=== PATIENT | male | born 1980 | race American Indian/Alaskan Native ===

== ENCOUNTER 2016-12-06 18:21 | Emergency (ER) | payer OTHER ==
[2016-12-06 18:30] VITALS: BP 154/82; PULSE 75; RESP 16; TEMP 98.8; O2SAT 100
--- NOTE | 2016-12-06 18:41 | ED PDOC ---
Lower Extremity Pain/Injury Time Seen by Provider: 12/06/16 18:31 Chief Complaint (Nursing): Lower Extremity Problem/Injury Chief Complaint (Provider): Lower Extremity Problem/Injury History Per: Patient History/Exam Limitations: no limitations Onset/Duration Of Symptoms: Days (x1 day) Current Symptoms Are (Timing): Still Present Additional Complaint(s): 36 y/o male presents to the emergency department with a complaint of pain and swelling to the left ankle and left pretibial status post open reduction internal fixation (ORIF) surgery of the left tib/fib area x1 day. Denies trauma , fever, chest pain, or shortness of breath. PMD: Dr. Nghia Bardales MD Past Medical History Reviewed: Historical Data, Nursing Documentation, Vital Signs Vital Signs: Last Vital Signs Temp 98.8 F 12/06/16 18:28 Pulse 75 12/06/16 18:28 Resp 16 12/06/16 18:28 BP 154/82 H 12/06/16 18:28 Pulse Ox 100 12/06/16 18:28 - Medical History PMH: No Chronic Diseases - Surgical History Other surgeries: ORIF left tib fib - Family History Family History: States: Unknown Family Hx - Immunization History Hx Tetanus Toxoid Vaccination: No Hx Influenza Vaccination: No Hx Pneumococcal Vaccination: No - Home Medications Home Medications: Ambulatory Orders Medication Instructions Recorded No Known Home Med 11/12/16 - Allergies Allergies/Adverse Reactions: Allergies Allergy/AdvReac Type Severity Reaction Status Date / Time No Known Allergies Allergy Verified 12/06/16 18:28 Review of Systems ROS Statement: Except As Marked, All Systems Reviewed And Found Negative Constitutional: Negative for: Fever Cardiovascular: Negative for: Chest Pain Respiratory: Negative for: Shortness of Breath Musculoskeletal: Positive for: Foot Pain (Pain and swelling of the left ankle and left pretibial area). Negative for: Other (No trauma) Physical Exam - Reviewed Nursing Documentation Reviewed: Yes Vital Signs Reviewed: Yes - Physical Exam Appears: Positive for: Non-toxic, No Acute Distress Head Exam: Positive for: ATRAUMATIC, NORMAL INSPECTION, NORMOCEPHALIC Skin: Positive for: Normal Color, Warm, Dry Cardiovascular/Chest: Positive for: Regular Rate, Rhythm. Negative for: Murmur Respiratory: Positive for: Normal Breath Sounds. Negative for: Accessory Muscle Use, Respiratory Distress Extremity: Positive for: Swelling (Left lower swelling and warmth noted to the left pretibial and calf region. Surgical scar noted. ). Negative for: Other ( Drainage. ) Neurologic/Psych: Positive for: Alert, Oriented - ECG O2 Sat by Pulse Oximetry: 100 (RA) Pulse Ox Interpretation: Normal Medical Decision Making Medical Decision Making: Time: 18:34 Initial plan: --VBG --CMP --CBC w/ diff --Blood Culture --Tibia Fibula Left x-ray --Duplex Lower Extrm US --Reevaluation Scribe Attestation: Documented by Tori Delgado, acting as a scribe for Renato Echavarria MD. Provider Scribe Attestation: All medical record entries made by the Scribe were at my direction and personally dictated by me. I have reviewed the chart and agree that the record accurately reflects my personal performance of the history, physical exam, medical decision making, and the department course for this patient. I have also personally directed, reviewed, and agree with the discharge instructions and disposition. Disposition - Clinical Impression Clinical Impression: Leg pain - Patient ED Disposition Is Patient to be Admitted: Transfer of Care - Disposition Disposition: Transfer of Care Disposition Time: 18:57 Condition: FAIR Forms: [employer] (Romanian) Patient Signed Over To: Gianni Gray
[2016-12-06 19:00] LABS: BASO % 0.5 % (0.0-2.0); EOS # 0.1 K/uL (0.0-0.7); EOS % 2.1 % (0.0-4.0); LYMPH # 2.7 K/uL (1.0-4.3); LYMPH % 39.2 % (20.0-40.0); MEAN CELL VOLUME 82.3 fl (80.0-94.0); MEAN CORPUSCULAR HEMOGLOBIN 26.2 pg (27.0-31.0); MEAN CORPUSCULAR HGB CONC 31.9 g/dL (33.0-37.0); MEAN PLATELET VOLUME 8.5 fl (7.2-11.7); MONO # 0.7 K/uL (0.0-0.8); MONO % 10.4 % (0.0-10.0); NEUT # 3.3 K/uL (1.8-7.0); NEUT % 47.8 % (50.0-75.0); RBC 4.19 Mil/uL (4.40-5.90); RED CELL DISTRIBUTION WIDTH 18.3 % (11.5-14.5); WHITE BLOOD COUNT 6.9 K/uL (4.8-10.8)
[2016-12-06 19:02] LABS: VENOUS BLOOD GAS BASE EXCESS 6.1 mmol/L (0.0-2.0); VENOUS BLOOD GAS PCO2 46 mmHg (40-60); VENOUS BLOOD GAS PO2 95 mm/Hg (30-55); VENOUS BLOOD PH 7.44 (7.32-7.43)
--- NOTE | 2016-12-06 19:28 | ED PDOC ---
- Laboratory Results Result Diagrams: 12/06/16 18:45 12/06/16 20:01 - ECG O2 Sat by Pulse Oximetry: 100 (RA) Pulse Ox Interpretation: Normal Medical Decision Making Medical Decision Making: Time: 19:00 --Patient transferred from Dr. Gross to mn. --Pending x-ray and ultrasound. Time: 19:55 --Duplex ultrasound FINDINGS: Normal-appearing compressibility, flow and augmentation response are seen in the left common femoral, femoral and popliteal veins. Flow is seen in the posterior tibial vein , in the left calf. IMPRESSION: No evidence of deep venous thrombosis in the left leg. Patient reassessed at bedside, sleeping but arousable. Patient requesting percocets. [place] Rx shows multiple prescriptions for narcotic, informed patient that he must see pain management for chronic pain issues. Xray neg for acute pathology (made patient aware that some screws were broken but likely chronic), recommended f/u w/ orthopedist. Return precautions given. Scribe Attestation: Documented by Tori Delgado, acting as a scribe for Gianni Gray MD. Provider Scribe Attestation: All medical record entries made by the Scribe were at my direction and personally dictated by me. I have reviewed the chart and agree that the record accurately reflects my personal performance of the history, physical exam, medical decision making, and the department course for this patient. I have also personally directed, reviewed, and agree with the discharge instructions and disposition. Disposition - Clinical Impression Clinical Impression: Leg pain, Chronic pain - POA Present On Arrival: None - Disposition Referrals: Pranav Hernandez III, MD [Staff Provider] - Disposition: Routine/Home Disposition Time: 19:55 Condition: FAIR Prescriptions: Ibuprofen [Motrin Tab] 600 mg PO Q6 #30 tab Instructions: Leg Pain (ED) Forms: [employer] (Guyanese)
--- NOTE | 2016-12-06 19:55 | US ---
EXAM: US Duplex Left Lower Extremity Veins CLINICAL HISTORY: 36 years old, male; Pain; Leg, lower; Left; Additional info: Swelling R/O dvt TECHNIQUE: Real-time ultrasound scan of the veins of the left lower extremity with color Doppler flow, spectral waveform analysis and compression. EXAM DATE/TIME: 12/06/2016 6:35 PM COMPARISON: No relevant prior studies available. FINDINGS: Normal-appearing compressibility, flow and augmentation response are seen in the left common femoral, femoral and popliteal veins. Flow is seen in the posterior tibial vein, in the left calf. IMPRESSION: No evidence of deep venous thrombosis in the left leg.
[2016-12-06 20:30] LABS: ALB/GLOB RATIO 1.2 (1.0-2.1); ALBUMIN 3.8 g/dL (3.5-5.0); ALT/SGPT 28 U/L (21-72); AST/SGOT 22 U/L (17-59); BLOOD UREA NITROGEN 17 mg/dl (9-20); CALCIUM 8.9 mg/dL (8.4-10.2); GFR AFRICAN-AMERICAN > 60; GFR NON-AFRICAN AMERICAN > 60
--- NOTE | 2016-12-07 11:42 | RAD ---
PROCEDURE: Radiographs of the left tibia and fibula. HISTORY: Swelling, Pain. No history of recent/ related trauma provided COMPARISON: None available. TECHNIQUE: Frontal and lateral views obtained. FINDINGS: BONES: Orthopedic hardware identified distal tibia and fibula traversing major fracture fragments which appear to be anatomically aligned. Evidence of callus formation/healing identified. Postoperative changes from prior orthopedic hardware proximal tibia and calcaneus. JOINT SPACES: Unremarkable. OTHER FINDINGS: None. IMPRESSION: No acute osseous findings. No evidence of hardware failure. No preliminary report provided by emergency department personnel.
== END 2016-12-06 21:43 | disposition home or self-care (01) ==
LOC: H.ER 18:21
DX: G89.29 Other chronic pain (principal); M79.605 Pain in left leg

== ENCOUNTER 2018-02-22 03:23 | Emergency (ER) | payer MEDICAID, OTHER ==
[2018-02-22 03:32] VITALS: BP 123/88; PULSE 94; RESP 16; TEMP 98.4; O2SAT 100
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
== END 2018-02-22 07:15 | disposition home or self-care (01) ==
LOC: H.ER 03:23
DX: F43.20 Adjustment disorder, unspecified (principal); I10 Essential (primary) hypertension

== ENCOUNTER 2018-02-24 17:32 | Emergency (ER) | payer MEDICAID ==
[2018-02-24 17:43] VITALS: RESP 16; TEMP 98
[2018-02-24] MEDS ORDERED: Oxycodone/Acetaminophen 5/325 mg Tab PO STA (18:51)
[2018-02-24] MEDS ORDERED: Oxycodone/Acetaminophen 5/325 mg Tab ONE (19:02)
[2018-02-24 19:28] VITALS: BP 151/79; PULSE 81; O2SAT 99
--- NOTE | 2018-02-24 20:01 | ED PDOC ---
HPI: General Adult Time Seen by Provider: 02/24/18 17:55 Chief Complaint (Nursing): Rib Injury Chief Complaint (Provider): Right rib pain, 3 weeks History Per: Patient History/Exam Limitations: no limitations Onset/Duration Of Symptoms: Days Have you had recent travel within the past 21 days to any of the following countries: [place], [place], [place] or [place]?: No Additional Complaint(s): 37 yo male with no medical problems presents for evaluation of right rib pain. Pt states he has rib fracture and was seen in [facility] for initial visit. Denies new injury or trauma Pt denies SOB Past Medical History Reviewed: Historical Data, Nursing Documentation, Vital Signs Vital Signs: Last Vital Signs Temp 98.0 F 02/24/18 17:41 Pulse 81 02/24/18 19:28 Resp 16 02/24/18 17:41 BP 151/79 H 02/24/18 19:28 Pulse Ox 99 02/24/18 19:28 - Medical History PMH: HTN Denies: Diabetes, Hepatitis, HIV, Seizures, Sexually Transmitted Disease - Surgical History Surgical History: No Surg Hx - Family History Family History: States: Unknown Family Hx - Living Arrangements Living Arrangements: With Family - Social History Current smoker - smoking cessation education provided: No - Immunization History Hx Tetanus Toxoid Vaccination: No Hx Influenza Vaccination: No Hx Pneumococcal Vaccination: No - Home Medications Home Medications: Ambulatory Orders Medication Instructions Recorded Ibuprofen [Motrin] 600 mg PO TID #21 tab 01/31/18 - Allergies Allergies/Adverse Reactions: Allergies Allergy/AdvReac Type Severity Reaction Status Date / Time No Known Allergies Allergy Verified 02/25/18 23:34 Review of Systems ROS Statement: Except As Marked, All Systems Reviewed And Found Negative Constitutional: Negative for: Fever, Chills Respiratory: Positive for: Other (Right rib pain ). Negative for: Cough, Shortness of Breath Physical Exam - Reviewed Nursing Documentation Reviewed: Yes Vital Signs Reviewed: Yes - Physical Exam Appears: Positive for: Well, Non-toxic, No Acute Distress Head Exam: Positive for: ATRAUMATIC, NORMAL INSPECTION, NORMOCEPHALIC Skin: Positive for: Normal Color, Warm, DRY Eye Exam: Positive for: Normal appearance ENT: Positive for: Normal ENT Inspection Neck: Positive for: Normal, Painless ROM Cardiovascular/Chest: Positive for: Regular Rate, Rhythm Respiratory: Positive for: Normal Breath Sounds. Negative for: Accessory Muscle Use, Respiratory Distress Back: Positive for: Normal Inspection Extremity: Positive for: Normal ROM Neurologic/Psych: Positive for: Alert, Oriented - ECG O2 Sat by Pulse Oximetry: 99 Medical Decision Making Medical Decision Making: Pain medication in ER. Pt reports feeling better. Previous XR reviewed, (+) fracture Lungs clear. Disposition - Clinical Impression Clinical Impression: Rib fracture - Patient ED Disposition Is Patient to be Admitted: No Counseled Patient/Family Regarding: Diagnosis, Need For Followup - Disposition Referrals: [facility] [Outside] Disposition: Routine/Home Disposition Time: 20:01 Condition: GOOD Instructions: Rib Fractures in Adults Forms: [employer] (Belgian)
== END 2018-02-24 20:40 | disposition home or self-care (01) ==
LOC: H.ER 17:32
DX: S22.31XA Fracture of one rib, right side, initial encounter for closed fracture (principal); W19.XXXA Unspecified fall, initial encounter; Y92.89 Other specified places as the place of occurrence of the external cause; I10 Essential (primary) hypertension

== ENCOUNTER 2018-02-28 21:13 | Emergency (ER) | payer MEDICAID, OTHER ==
[2018-02-28 21:21] VITALS: BP 168/78; PULSE 90; RESP 18; TEMP 97.8; O2SAT 99
[2018-03-01] MEDS ORDERED: Naproxen 500 MG TAB PO ONE ×2 (04:55→05:21)
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
== END 2018-03-01 06:55 | disposition home or self-care (01) ==
LOC: H.ER 21:13
DX: F10.10 Alcohol abuse, uncomplicated (principal); I10 Essential (primary) hypertension

== ENCOUNTER 2018-03-03 04:17 | Emergency (ER) | payer MEDICAID ==
[2018-03-03 04:34] VITALS: O2SAT 98
--- NOTE | 2018-03-03 05:04 | ED PDOC ---
HPI: General Adult Time Seen by Provider: 03/03/18 04:25 Chief Complaint (Nursing): Rib Injury Chief Complaint (Provider): Chronic Pain History Per: Patient History/Exam Limitations: no limitations Onset/Duration Of Symptoms: Persistent Current Symptoms Are (Timing): Still Present Additional Complaint(s): 37 year old male presents to the ED for evaluation of chronic rib pain since January 2018. As per old notes, patient has hx of drug abuse, chronic pain, and homelessness. When asked why he was here today, he said he has "pain everywhere." PMD: none provided Past Medical History Reviewed: Historical Data, Nursing Documentation, Vital Signs Vital Signs: Last Vital Signs Temp 98 F 03/03/18 04:31 Pulse 82 03/03/18 04:31 Resp 16 03/03/18 04:31 BP 151/89 H 03/03/18 04:31 Pulse Ox 98 03/03/18 04:31 - Medical History PMH: HTN Denies: Diabetes, Hepatitis, HIV, Seizures, Sexually Transmitted Disease - Surgical History Surgical History: No Surg Hx - Family History Family History: States: Unknown Family Hx - Living Arrangements Living Arrangements: Other (homeless) - Social History Current smoker - smoking cessation education provided: Yes Alcohol: Social Drugs: Other (PCP) - Immunization History Hx Tetanus Toxoid Vaccination: No Hx Influenza Vaccination: No Hx Pneumococcal Vaccination: No - Home Medications Home Medications: Ambulatory Orders Medication Instructions Recorded Ibuprofen [Motrin] 600 mg PO TID #21 tab 01/31/18 - Allergies Allergies/Adverse Reactions: Allergies Allergy/AdvReac Type Severity Reaction Status Date / Time No Known Allergies Allergy Verified 03/03/18 04:30 Review of Systems ROS Statement: Except As Marked, All Systems Reviewed And Found Negative Musculoskeletal: Positive for: Other ("pain everywhere") Physical Exam - Reviewed Nursing Documentation Reviewed: Yes Vital Signs Reviewed: Yes - Physical Exam Appears: Positive for: Well, Non-toxic Skin: Positive for: Normal Color, Warm, Dry Cardiovascular/Chest: Positive for: Regular Rate, Rhythm Respiratory: Positive for: Normal Breath Sounds Gastrointestinal/Abdominal: Positive for: Soft. Negative for: Tenderness Neurologic/Psych: Positive for: Alert, Oriented - ECG O2 Sat by Pulse Oximetry: 98 (RA) Pulse Ox Interpretation: Normal Medical Decision Making Medical Decision Making: Time: 0450 Initial Impression: chronic pain,sleeping in the bed in no distress Initial Plan: --Tylenol 650mg PO 5 ampt feels better. more awke and alert, airway intact, speaking comfortabl, stable gait, stable for dc home. Scribe Attestation: Documented by Sugar Ortega, acting as a scribe for Carmelina Kingston MD. Provider Scribe Attestation: All medical record entries made by the Scribe were at my direction and personally dictated by me. I have reviewed the chart and agree that the record accurately reflects my personal performance of the history, physical exam, medical decision making, and the department course for this patient. I have also personally directed, reviewed, and agree with the discharge instructions and disposition. Disposition - Clinical Impression Clinical Impression: Total body pain - Patient ED Disposition Is Patient to be Admitted: No Counseled Patient/Family Regarding: Studies Performed, Diagnosis, Need For Followup - Disposition Disposition: Routine/Home Disposition Time: 07:00 Condition: IMPROVED Additional Instructions: follow up with your doctor in 1-2 days return to the ED with any worsening or concerning symptoms Instructions: Acute Pain, Adult (DC) Forms: [employer] (Thai)
[2018-03-03 07:20] VITALS: BP 133/83; PULSE 86; RESP 18; TEMP 98.3
== END 2018-03-03 07:20 | disposition home or self-care (01) ==
LOC: H.ER 04:17
DX: M79.18 Myalgia, other site (principal); Z59.0 Homelessness

== ENCOUNTER 2018-03-14 23:16 | Emergency (ER) | payer MEDICAID ==
[2018-03-14 23:16] VITALS: BMI 27.1
[2018-03-14 23:59] VITALS: BP 126/81; PULSE 78; RESP 18; TEMP 98; O2SAT 99
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
== END 2018-03-15 04:53 | disposition home or self-care (01) ==
LOC: H.ER 23:16
DX: S22.31XD Fracture of one rib, right side, subsequent encounter for fracture with routine healing (principal); Y09 Assault by unspecified means; Z76.5 Malingerer [conscious simulation]; I10 Essential (primary) hypertension

== ENCOUNTER 2018-07-09 12:26 | Emergency (ER) | payer MEDICAID, OTHER ==
[2018-07-09 12:26] VITALS: BMI 30.8
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
[2018-07-09 19:31] VITALS: BP 130/81; PULSE 78; RESP 18; TEMP 98
[2018-07-09 19:54] VITALS: O2SAT 98
== END 2018-07-09 19:29 | disposition home or self-care (01) ==
LOC: H.ER 12:26
DX: F10.129 Alcohol abuse with intoxication, unspecified (principal); G89.29 Other chronic pain; I10 Essential (primary) hypertension; R51 Headache; Y04.2XXA Assault by strike against or bumped into by another person, initial encounter